=== PATIENT | female | born 1990 | race Caucasian/White ===

== ENCOUNTER 2018-12-09 15:06 | Emergency (ER) | payer MEDICAID ==
[~2018-12-09] VITALS: Ht 170.2 cm; Wt 77.0 kg
[2018-12-09 17:14] VITALS: BP 120/86
== END 2018-12-09 18:19 | disposition left against medical advice (07) ==
LOC: ER 15:06
DX: J06.9 Acute upper respiratory infection, unspecified (principal)
CPT/HCPCS: 99281